=== PATIENT | female | born 1950 | race Caucasian/White ===

== ENCOUNTER → 2017-07-22 | Outpatient (CLI) | payer OTHER ==
[~2017-07-22] MED LIST: FOLI0.8T2 PO; INSU100V8 SQ; LOSA50TA6 PO; METF10002 PO; PIOG30TA4 PO
[2017-07-22 10:30] LABS: HEMATOCRIT 40.9 % (34.6-47.8); HEMOGLOBIN 13.3 g/dL (11.7-16.4); WHITE BLOOD COUNT 3.9 x10^3/uL (3.4-10)
[2017-07-22 10:46] LABS: BLOOD UREA NITROGEN 16 mg/dL (7-18)
[2017-07-22 10:49] LABS: ASPARTATE AMINO TRANSFERASE 23 U/L (15-37)
== END | disposition home or self-care (01) ==
LOC: STAR 09:28
PROVIDERS: ATTEND Surgery
DX: Z01.818 Encounter for other preprocedural examination (principal); R94.31 Abnormal electrocardiogram [ECG] [EKG]; R79.1 Abnormal coagulation profile
CPT/HCPCS: 36415; 80053; 85025; 85610; 93005

== ENCOUNTER 2017-07-30 06:48 | Day surgery (SDC) | payer OTHER ==
[~2017-07-30] VITALS: Ht 165.1 cm; Wt 75.9 kg
[2017-07-30] MEDS ORDERED: EPINEPHRINE 1 MG/ML, 1ML ONE (07:01)
[2017-07-30] MEDS ORDERED: BUPIVACAINE/PF 0.5% ONE (07:01)
[2017-07-30] MEDS ORDERED: LACTATED RINGERS 1,000 ML IV SCH (07:30)
[2017-07-30 07:35] VITALS: BP 145/84
[2017-07-30] MEDS ORDERED: MIDAZOLAM 1 MG/ML, 2ML ONE (08:42)
[2017-07-30] MEDS ORDERED: FENTANYL PF 100 MCG/2ML ONE (08:43)
[2017-07-30] MEDS ORDERED: ONDANSETRON 2MG/ML, 2ML ONE (08:47)
[2017-07-30] MEDS ORDERED: DEXAMETHASONE 4 MG/ML, 1ML ONE (08:47)
[2017-07-30] MEDS ORDERED: PROPOFOL 10 MG/ML, 20ML ONE (08:47)
[2017-07-30] MEDS ORDERED: CEFAZOLIN 1,000 MG ONE (08:47)
[2017-07-30] MEDS ORDERED: ROCURONIUM 10 MG/ML ONE (08:47)
[2017-07-30] MEDS ORDERED: SUCCINYLCHOLINE 20 MG/ML, 10ML ONE (08:47)
[2017-07-30] MEDS ORDERED: ACETAMINOPHEN 325 MG TABLET PO PRN (09:00)
[2017-07-30] MEDS ORDERED: METOPROLOL 1 MG/ML, 5ML IV PRN (09:00)
[2017-07-30] MEDS ORDERED: ONDANSETRON 2MG/ML, 2ML IVPush PRN (09:00)
[2017-07-30] MEDS ORDERED: FENTANYL PF 100 MCG/2ML IV PRN (09:00)
[2017-07-30] MEDS ORDERED: hydrALAzine 20 MG/ML, 1ML IV PRN (09:00)
[2017-07-30] MEDS ORDERED: KETOROLAC 30 MG/1 ML IV PRN (09:00)
[2017-07-30] MEDS ORDERED: LABETALOL 5MG/ML, 20ML IV PRN (09:00)
[2017-07-30] MEDS ORDERED: ALBUTEROL SULFATE 2.5 MG/3 ML NPPB PRN (09:00)
[2017-07-30] MEDS ORDERED: HYDROcodone/APAP 7.5-325MG/15ML UDC PO PRN (09:00)
[2017-07-30] MEDS ORDERED: HYDROmorphone 1 MG/ML, 1ML IV PRN (09:00)
[2017-07-30] MEDS ORDERED: OXYcodone 5 MG/5 ML ORAL.SOL UDC PO PRN (09:00)
[2017-07-30] MEDS ORDERED: EPHEDRINE 50 MG/ML, 1ML IVPush PRN (09:00)
[2017-07-30] MEDS ORDERED: BUPIVACAINE/PF-EPI 0.5% 1:200K IM ONE (09:10)
== END 2017-07-30 11:45 ==
LOC: OUT 06:48
PROVIDERS: ATTEND Surgery
DX: C44.612 Basal cell carcinoma of skin of right upper limb, including shoulder (principal); E11.9 Type 2 diabetes mellitus without complications; E78.00 Pure hypercholesterolemia, unspecified; I10 Essential (primary) hypertension; Z90.49 Acquired absence of other specified parts of digestive tract; Z98.49 Cataract extraction status, unspecified eye
CPT/HCPCS: 11604; 12032; 82962; 88307; J0171; J0330; J0690; J1100; J2250; J2405; J2704; J3010; J3490; J7120

== ENCOUNTER → 2018-01-04 | Outpatient (CLI) | payer OTHER | END | disposition home or self-care (01) | LOC: CFH 09:42 | PROVIDERS: ATTEND Nurse Practitioner Family | DX: Z12.31 Encounter for screening mammogram for malignant neoplasm of breast (principal) | CPT/HCPCS: 77067 ==

== ENCOUNTER 2018-11-19 10:45 | Day surgery (SDC) | payer OTHER ==
[~2018-11-19] VITALS: Ht 162.6 cm; Wt 82.5 kg
[~2018-11-19 10:45] MED LIST changes: +CALC1CAP8 PO; +CHOL500015 PO; +GABA300C10 PO; -LOSA50TA6 PO; +LOSA50TA7 PO; -METF10002 PO; +METF10007 PO; +PRAV10TA2 PO; +SITA100T PO
[2018-11-19] MEDS ORDERED: LACTATED RINGERS 1,000 ML IV SCH (11:00)
[2018-11-19 11:03] VITALS: BP 147/79
[2018-11-19] MEDS ORDERED: BUPIVACAINE/PF 0.5% ONE (11:33)
[2018-11-19] MEDS ORDERED: NEOSPORIN OINT, 15GM ONE (11:33)
[2018-11-19] MEDS ORDERED: FENTANYL PF 250 MCG/5ML ONE (11:50)
[2018-11-19] MEDS ORDERED: MIDAZOLAM 1 MG/ML, 2ML ONE (11:50)
[2018-11-19] MEDS ORDERED: PROPOFOL 10 MG/ML, 20ML ONE (11:51)
[2018-11-19] MEDS ORDERED: FENTANYL PF 100 MCG/2ML IV PRN (12:30)
[2018-11-19] MEDS ORDERED: HYDROmorphone 2 MG/ML, 1ML IVPush PRN (12:30)
[2018-11-19] MEDS ORDERED: ACETAMINOPHEN 325 MG TABLET PO PRN (12:30)
[2018-11-19] MEDS ORDERED: LABETALOL 5MG/ML, 20ML IV PRN (12:30)
[2018-11-19] MEDS ORDERED: PROMETHAZINE 25 MG/ML, 1ML IV PRN (12:30)
[2018-11-19] MEDS ORDERED: hydrALAzine 20 MG/ML, 1ML IV PRN (12:30)
[2018-11-19] MEDS ORDERED: OXYcodone 5 MG/5 ML ORAL.SOL UDC PO PRN (12:30)
[2018-11-19] MEDS ORDERED: ONDANSETRON 2MG/ML, 2ML IV PRN (12:30)
[2018-11-19] MEDS ORDERED: MEPERIDINE/PF 25MG/0.5ML IVPush PRN (12:30)
[2018-11-19] MEDS ORDERED: ROCURONIUM 10 MG/ML,10ML ONE (12:34)
[2018-11-19] MEDS ORDERED: CEFAZOLIN 1,000 MG ONE ×2 (12:42)
[2018-11-19] MEDS ORDERED: DEXAMETHASONE 4 MG/ML, 1ML ONE (13:10)
[2018-11-19] MEDS ORDERED: ONDANSETRON 2MG/ML, 2ML ONE (13:10)
[2018-11-19] MEDS ORDERED: FENTANYL PF 100 MCG/2ML ONE (13:48)
== END 2018-11-19 15:30 | disposition home or self-care (01) ==
LOC: OUT 10:45
PROVIDERS: ATTEND Orthopaedic Surgery
DX: M65.332 Trigger finger, left middle finger (principal); M19.042 Primary osteoarthritis, left hand; E11.51 Type 2 diabetes mellitus with diabetic peripheral angiopathy without gangrene; E11.39 Type 2 diabetes mellitus with other diabetic ophthalmic complication; H42 Glaucoma in diseases classified elsewhere; Z85.828 Personal history of other malignant neoplasm of skin; Z79.899 Other long term (current) drug therapy; Z90.49 Acquired absence of other specified parts of digestive tract; Z88.0 Allergy status to penicillin; Z98.890 Other specified postprocedural states
CPT/HCPCS: 26055; 26860; 73140; 76000; 82962; J0690; J1100; J2250; J2405; J2704; J3010; J3490; J7120

== ENCOUNTER → 2019-02-17 | Outpatient (CLI) | payer OTHER ==
[~2019-02-17] MED LIST changes: +LOSA50TA14 PO; -LOSA50TA7 PO
== END | disposition home or self-care (01) ==
LOC: CFH 10:38
PROVIDERS: ATTEND Nurse Practitioner Family
DX: Z12.31 Encounter for screening mammogram for malignant neoplasm of breast (principal); Z80.3 Family history of malignant neoplasm of breast
CPT/HCPCS: 77067